=== PATIENT | male | born 1970 | race Caucasian/White ===

== ENCOUNTER 2019-01-04 13:39 | Day surgery (SDC) | payer OTHER, SELFPAY ==
--- NOTE | 2019-01-04 | PATH_ITS ---
[facility] Accession Number: [id number] . 01 Material submitted: . sigmoid colon - SIGMOID POLYP . 02 Diagnosis: Sigmoid Colon, Polyp: Tubular adenoma. I/01/06/2019 . 02 Electronically signed: . Pierce Harris MD, PhD, Pathologist NPI- [id number] . 01 Gross description: . SIGMOID POLYP: Received in formalin is 1 fragment(s) of acevedo, soft tissue measuring 1.1 x 0.8 x 0.6 cm which is inked, bisected and submitted entirely in 1 cassette(s) /CKI /CKI . 02 Pathologist provided ICD-10: D12.5 . 02 CPT . 129320 Performed at: 01 [facility] [address] [id number] MD Cecilio Telles MD Phone: [phone] Performed at: 02 [facility] [address] [place], [place] [id number] MD Elizabeth Rojo MD Phone: [phone]
--- NOTE | 2019-01-04 14:12 | PM.HP.1 ---
History of Present Illness Date Patient Seen: 01/04/19 Time Patient Seen: 15:00 Chief complaint: [id number] Narrative: 48yo M for first screening colonoscopy. No alarm symptoms. Family history of colon cancer on father's side including great aunts. Meds Home Medications Medication Instructions Recorded Confirmed Type multivitamin 1 tab PO DAILY #1 11/20/07 01/04/19 History cetirizine [Zyrtec] 10 mg PO DAILY 01/04/19 01/04/19 History fenofibrate 40 mg PO DAILY 01/04/19 01/04/19 History Allergies Allergy/AdvReac Type Severity Reaction Status Date / Time Penicillins Allergy Severe Respiratory Verified 01/04/19 14:29 distress Review of Systems Constitutional Constitutional: Reports as per HPI Exam Narrative Exam Narrative: AAO, NAD EOMI, MMM, no scleral icterus unlabored RA soft, nt/nd MAEW visible skin dry and intact Assessment & Plan (1) Screening for colorectal cancer: Current visit: Yes Status: Acute Assessment & Plan narrative: - high risk screening colonoscopy --> all R/B/A discussed and pt wishes to proceed
[2019-01-04 14:30] VITALS: BP 124/82; PULSE 78; RESP 15; TEMP 36.4; O2SAT 95
[2019-01-04 14:32] VITALS: BMI 29.9
[2019-01-04] MEDS: SODIUM CHLORIDE 0.9% 1,000 ML 200 ML IV (14:50)
[2019-01-04] MEDS: MIDAZOLAM 5 MG/5 ML VIAL IV (16:01)
[2019-01-04] MEDS: fentaNYL 250 MCG/5 ML INJ IV (16:02)
--- NOTE | 2019-01-04 16:22 | PM.OP.ENDO ---
Operative Date/Time/Diagnoses Date of procedure: 01/04/19 Time of procedure: 16:23 Pre-op diagnosis: Family history of colon cancer Post-op diagnosis: same Procedure & Clinicians Study performed: High risk screening colonoscopy Same procedure as scheduled: Yes Indications: 48yo M for first screening colonoscopy, does have family members he estimates were diagnosed in their 70s. No symptoms. Surgeon: Kavita Kamara Procedure Notes SCOAP/Timeout: 6738 Procedure in detail: After obtaining informed consent, the patient was brought to the GI suite and placed in the left lateral decubitus position on the examination table. After placement of appropriate monitors, the patient was given incremental doses of Versed and Fentanyl until an appropriate level of sedation was achieved. A time out was held per SCOAP protocol. A digital rectal examination was performed and did not reveal any masses or obstructing lesions. The colonoscope was gently passed into the patient's anus and the entire colon navigated to the level of the cecum with minimal difficulty. Prep was adequate. Once in the cecum, the scope was slowly withdrawn being sure to go before and beyond all mucosal folds and prominences as able to get a thorough examination. A single polyp, ~1cm, was noted in the sigmoid and removed with a hot snare for biopsy. No other abnormal findings. At the level of the rectal vault, the scope was retroflexed and the internal anal canal was examined. The scope was straightened and air aspirated from the colon. The instrument was removed from the patient's body and the procedure was concluded. The patient was allowed to awaken from sedation without difficulty and taken to the post-anesthesia care unit in good condition. Scope withdrawal time: 10 min Sedation minutes: 22 Findings: polyp (sigmoid (30cm), 1cm) Specimen(s): other (sigmoid polyp) Complications: none Impression: 1. Sigmoid polyp at 30cm, ~1cm, removed with hot snare 2. Otherwise normal colon Recommendations: Colonscopy in 5 years (pending path; family history ) Follow up: weeks Disposition: PACU
[2019-01-04 16:25] VITALS: BP 110/71; PULSE 90; RESP 14; TEMP 36.4; O2SAT 97
[2019-01-04 16:30] VITALS: BP 113/80; PULSE 90; RESP 14; O2SAT 97
[2019-01-04 16:35] VITALS: BP 109/78; PULSE 86; RESP 14; O2SAT 97
[2019-01-04 16:40] VITALS: BP 120/70; PULSE 60; RESP 20; TEMP 36.6; O2SAT 99
[2019-01-04 16:47] VITALS: BP 110/77; PULSE 84; RESP 16; O2SAT 97
== END 2019-01-04 16:53 | disposition home or self-care (01) ==
PROVIDERS: PCP Family Medicine; Visit Provider Surgery
PROC: 0DJD8ZZ Inspection of Lower Intestinal Tract, Via Natural or Artificial Opening Endoscopic (ICD-10-PCS; CPT 45378; principal; 2019-01-04 15:00)
DX: Z12.11 Encounter for screening for malignant neoplasm of colon (principal); Z80.0 Family history of malignant neoplasm of digestive organs; K64.4 Residual hemorrhoidal skin tags; D12.5 Benign neoplasm of sigmoid colon
CPT/HCPCS: 45385; 99152; J2250; J3010

== ENCOUNTER → 2019-02-19 17:02 | Outpatient (CLI) | payer OTHER, SELFPAY ==
[2019-02-19 17:49] LABS: Add Manual Diff / Slide Review NO; Basophils Absolute Auto 0 /uL (0-100); Basophils Percent Auto 0.2 % (0-2); Eosinophils Absolute Auto 400 /uL (0-450); Eosinophils Percent Auto 4.6 % (2-4); Hematocrit 49.7 % (41-53); Hemoglobin 17.1 g/dL (13.5-17.5); Lymphocytes Absolute Auto 3000 /uL (1100-4500); Lymphocytes Percent Auto 32.6 % (25-40); Mean Corpuscular HGB Conc 34.4 % (30-36); Mean Corpuscular Hemoglobin 33.4 PG (26-34); Mean Corpuscular Volume 97.1 fL (80-100); Monocytes Absolute Auto 800 /uL (0-900); Monocytes Percent Auto 8.2 % (3-14); Neutrophils Absolute Auto 5000 /uL (1500-7000); Neutrophils Percent Auto 54.4 % (50-75); Platelet Count 240 X10^3/uL (150-400); Red Blood Cell Count 5.12 X10^6/uL (4.5-5.9); Red Cell Distribution Width 12.9 % (11.6-14.8); White Blood Cell Count 9.2 X10^3/uL (4.5-11.0)
== END ==
PROVIDERS: PCP Family Medicine
DX: D75.1 Secondary polycythemia (principal)
CPT/HCPCS: 36415; 81270; 85025

== ENCOUNTER 2019-07-27 09:53 | Day surgery (SDC) | payer OTHER, SELFPAY ==
[2019-07-15 15:53] VITALS: BMI 31.7
[2019-07-27] VITALS (9 sets, daily range): BP systolic 111–151; BP diastolic 64–104; PULSE 75–105; RESP 10–16; TEMP 36.3–36.6; O2SAT 93–96; BMI 32.3
[2019-07-27] MEDS: ACETAMINOPHEN 325 MG TABLET 975 MG PO (10:04)
[2019-07-27] MEDS: LACTATED RINGERS 1,000 ML 42 ML IV ×2 (10:05→13:31)
[2019-07-27] MEDS: GABAPENTIN 300 MG CAPSULE PO (10:05)
[2019-07-27] MEDS: CELECOXIB 200 MG CAPSULE 400 MG PO (10:05)
--- NOTE | 2019-07-27 12:05 | PM.PREOP ---
Pre-operative Note Interval Note History & Physical reviewed/Exam performed by Physician: Yes Changes to H&P: No
[2019-07-27] MEDS: CLINDAMYCIN 900 MG/50 ML PIGGYBACK 50 MG IV (12:35)
[2019-07-27] MEDS: BUPIVACAINE 0.25% W/ EPI 30 ML VIAL INJ (13:00)
--- NOTE | 2019-07-27 13:01 | SUR.OPER ---
Supine on padded OR bed, head on pillow, arm padded and tucked at side, legs uncrossed, safety belt at thigh, tape over blanket over lower legs .
--- NOTE | 2019-07-27 13:05 | PM.EVENT ---
Event Note Date Patient Seen: 07/27/19 Time Patient Seen: 12:45 Event Note: Difficult Airway Note Patient scheduled for laprascopic inguinal henia repair. Exam MP 2, good mouth opening and thyromental distance, normal neck and jaw ROM, normal dentition; old tracheostomy scar from croup as a child. Taken to OR, positioned and JOSE MARTIN monitors attached. Smooth IV induction, mask ventilation achieved. Initial direct laryngoscopy with Mac 4 elicited a grade 3 view and mouth opening was very tight despite succinylcholine. DL with Thompson 3 was slightly improved at intermittent grade 2b view but ETT unable to be passed with BURP. Glidescope LoPro S3 with a grade 3 view, esophageal intubation x2. Patient was able to be mask ventilated with oral airway between attempts. Help was called, Dr. Young able to intubate (with some difficulty -- anterior larynx) with an optical stylette. Slight soft tissue erythema from the multiple attempts but no other trauma. Successful intubation with optical stylette. Continued successful mask ventilation. Positioning could have been more optimized with ramping and a donut instead of flat with a pillow. Macey Davidson MD Anesthesiologist
--- NOTE | 2019-07-27 14:21 | PM.OP.1 ---
Operative Date/Time/Diagnoses Date of procedure: 07/27/19 Time of procedure: 14:21 Pre-op diagnosis: Right inguinal hernia Post-op diagnosis: same Procedure & Clinicians Procedure: laparoscopic right inguinal hernia repair with mesh Same procedure as scheduled: Yes Indications: symptomatic right inguinal hernia Surgeon: Brien Marc Click Yes if Unassisted: Yes Anesthesia Type: General Operative Notes Findings: Direct right inguinal hernia. No significant left inguinal hernia Specimen(s): none sent Procedure in detail: The patient was brought to the operating room and placed supine on the table. Bilateral sequential compression devices were applied. General anesthesia was induced and they were intubated with an endotracheal tube. A scherer cath was placed in sterile fashion. They received 900g clindaymycin prior to skin incision. They were prepped and draped in sterile fashion. A time out was performed to ensure the correct patient, procedure and necessary equipment within the operating room. The skin was infiltrated with 0.25% bupivicaine. A 1 cm infram umbilical midline incision was made. The umbilical stalk was elevated the fascia sharply incised and the abdomen entered traumatically. A 10mm balloon port was placed and pneumoperitoneum was established at 15mm Hg. Inspection of the abdomen demonstrated no evidence of injury upon entry. Two 5 mm ports were then placed under direct visualization in the right and left lower quadrant lateral to the rectus muscle. A right direct hernia was observed. There was no major left inguinal hernia. The vas deferns the spermatic vessels were identified and protected. The peritoneum 4 cm superior to the deep inguinal ring between the medial umbilical ligament and the anterior superior iliac spine was incised. The peritoneal flap was retracted and the preperitoneal tissue was dissected off the flap beginning lateral to the inferior epigastric artery and towards the ASIS and to posterior limit of the psoas muscle to develop the lateral aspect of the pocket. Next the peritoneum medial to the inferior epigastric was mobilized towards the median umbilical ligament to develop the medial aspect of the pocket and the direct defect was reduced. The space of Retzius was fully dissected such that the Isaías's ligament and the pubic symphysis were visible. Next, the peritoneum was mobilized off the the spermatic vessels and vas deferns. A large Bard 3D Max mesh was then placed into the abdomen and positioned such that the myopectineal orifice was completely covered with good overlap on all sides. The mesh was anchored to the pubic tubercle and to Isaías?s ligament. The peritoneal flap was then repositioned back to its original position and tacks were used to anchor it in position such that no bowel could herniate into the preperitoneal space. The area was examined for hemostasis. The 5mm trocars were removed under direct visualization and pneumoperitoneum was deflated through the umbilical trocar, The fascia at the umbilicus was closed with 0-Vicryl in figure of 8 fashion, skin closed with 4-0 Monocyl followed by Dermabond. The sponge and instrument count at the end of the case was correct. Both testicles were entirely within the scrotum at the end of the case. The patient emerged from anesthsia was extubated and transferred to recovery in stable condition. Complications: none Post-operative Condition: stable Disposition: same day surgery
--- NOTE | 2019-07-27 14:39 | SUR.PHASEI ---
Oral airway placed in PACU 2nd to patient apneic with 02 sats at 85%. Patient placed on 15L via face mask. Del CDI.
[2019-07-27] MEDS: OXYCODONE IR 5 MG TABLET PO (14:52)
--- NOTE | 2019-07-27 14:57 | SUR.PHASEII ---
Patient awake, alert. Sats 94% on RA. Del CDI. Gave po pain medication preemptively for long drive home.
== END 2019-07-27 15:39 | disposition home or self-care (01) ==
PROVIDERS: PCP Family Medicine; Visit Provider Surgery
PROC: (CPT 49650; principal; 2019-07-27 12:15)
DX: K40.90 Unilateral inguinal hernia, without obstruction or gangrene, not specified as recurrent (principal)
CPT/HCPCS: 49650; C1781; J0330; J1885; J2405; J2704; J3010